=== PATIENT | female | born 1990 | race Caucasian/White ===

== ENCOUNTER → 2020-04-29 15:57 | Outpatient (BNVA) | payer OTHER, SELFPAY | PROVIDERS: Family Provider Family Medicine; Visit Provider Family Medicine | DX: Z20.828 Contact with and (suspected) exposure to other viral communicable diseases (principal) | CPT/HCPCS: 87635 ==

== ENCOUNTER → 2021-01-22 09:50 | Outpatient (BNVA) | payer OTHER, SELFPAY | PROVIDERS: Family Provider Family Medicine; Visit Provider Nurse Practitioner Women's Health | DX: Z01.419 Encounter for gynecological examination (general) (routine) without abnormal findings (principal); N92.0 Excessive and frequent menstruation with regular cycle; Z80.3 Family history of malignant neoplasm of breast | CPT/HCPCS: 84443; 85025; 88175 ==

== ENCOUNTER → 2024-06-21 08:19 | Outpatient (BNVA) | payer OTHER, SELFPAY | PROVIDERS: Family Provider Family Medicine; Visit Provider Nurse Practitioner Women's Health | DX: R53.83 Other fatigue (principal) | CPT/HCPCS: 82306; 82607; 82728; 82746; 83540; 84439; 84443; 85025 ==